=== PATIENT | female | born 1940 | race Caucasian/White ===

== ENCOUNTER 2024-11-09 17:21 | Emergency (ER) | payer MEDICARE ==
[~2024-11-09] VITALS: Ht 172.7 cm; Wt 87.6 kg
--- NOTE | 2024-11-09 17:38 | ELECTROCARDIOGRAPH REPORT ---
[facility] Test Date: 2024-11-09 Test Time: 17:35:42 Pat Name: YOLANDA NICHOLS Department: [facility]- Patient ID: [facility]-[id number] Room: Gender: F Manager Assembly: : 1940 Requested By: GINO VAN Order Number: [id number] Reading MD: Dr. Ayo Mccormack Measurements Intervals [place] Rate: 70 P: 0 CO: 0 QRS: -64 QRSD: 104 T: 81 QT: 428 QTc: 462 Interpretive Statements Afib/flutter and ventricular-paced rhythm No further analysis attempted due to paced rhythm Electronically Signed On 11-10-2024 6:40:[address] Ayo Mccormack Please click the below link to view image of tracing.
--- NOTE | 2024-11-09 18:02 | RADIOLOGY REPORT ---
CT CT STROKE ALERT INDICATION: Stroke Alert EXAM DATE: 11/09/2024 05:45 PM COMPARISON: None TECHNIQUE: CT of the head without intravenous contrast. RADIATION DOSE: CTDIvol: 56.69 mGy, DLP: 989.29 mGy*cm FINDINGS: There is no evidence of acute intracranial hemorrhage, extra-axial collection, mass effect, midline s hift, herniation or hydrocephalus. The ventricles, sulci and cisterns are age appropriate. The ramachandran -white differentiation is intact. The visualized paranasal sinuses and mastoid air cells are clear. The surrounding soft tissues and osseous structures are unremarkable. There is periventricular ischemic white matter changes and global atrophy. IMPRESSION: 1. No evidence of acute intracranial hemorrhage, mass effect or hydrocephalus. 2. Findings reported to the referral physician through freezer assistant
--- NOTE | 2024-11-09 18:07 | RADIOLOGY REPORT ---
EXAM: DI CHEST,SINGLE VIEW REASON FOR EXAM: Stroke Alert TECHNIQUE: 1 view of the chest COMPARISON: None FINDINGS/IMPRESSION: LUNGS: No pleural effusion, consolidation, or pneumothorax MEDIASTINUM: Normal cardiac size. Left anterior chest cardiac device. BONES: No acute osseous abnormality OTHER: None
[2024-11-09 18:27] LABS: BASOPHILS # (AUTO) 0.1 X10'3 (0-0.2); BASOPHILS % (AUTO) 0.7 % (0-1); EOSINOPHILS # (AUTO) 0.2 X10'3 (0-0.9); EOSINOPHILS % (AUTO) 2.5 % (0-6); HEMATOCRIT 40.3 % (35.0-45.0); HEMOGLOBIN 13.7 g/dl (12.0-16.0); LYMPHOCYTES # (AUTO) 1.7 X10'3 (1.1-4.8); LYMPHOCYTES % (AUTO) 24.1 % (21-51); MEAN CORPUSCULAR HEMOGLOBIN 31.2 PG (27.0-31.0); MEAN CORPUSCULAR VOLUME 91.8 FL (78-98); MEAN PLATELET VOLUME 9.2 FL (7.4-10.4); MONOCYTES # (AUTO) 0.4 X10'3 (0-0.9); MONOCYTES % (AUTO) 5.4 % (2-12); NEUTROPHILS # (AUTO) 4.6 X10'3 (1.8-7.7); NEUTROPHILS % (AUTO) 67.3 % (42-75); PLATELET COUNT 184 X10'3 (140-440); RED BLOOD COUNT 4.39 X10'6 (4.20-5.60); RED CELL DISTRIBUTION WIDTH 13.5 % (11.5-14.5); WHITE BLOOD COUNT 6.9 X10'3 (4.5-11.0)
[2024-11-09 18:29] LABS: APTT 32 SECONDS (22-32); INR 1.2 INR; PROTHROMBIN TIME 12.1 SECONDS (9.0-12.0)
[2024-11-09 18:32] VITALS: BP 189/76; PULSE 72; TEMP 97.5; O2SAT 96
[2024-11-09 18:33] LABS: ANION GAP 9 (8-16); BLOOD UREA NITROGEN 21 MG/DL (7-18); BUN/CREATININE RATIO 22.6 (10.0-20.0); CALCIUM 9.4 MG/DL (8.5-10.1); CHLORIDE 105 MMOL/L (99-107); CREATININE 0.93 MG/DL (0.40-0.90); GLUCOSE 114 MG/DL (70-104); POTASSIUM 3.4 MMOL/L (3.5-5.1); SODIUM 142 MMOL/L (135-145); TOTAL CARBON DIOXIDE 28.3 MMOL/L (24-32); eCRCL 45 ML/MIN; eGFR 57 ML/MIN
--- NOTE | 2024-11-09 20:26 | Physician Documentation ---
History of Present Illness ~ Chief Complaint: Stroke Alert Stated Complaint: HIGH BLOOD PRESSURE Time Seen by MD: 20:23 Mode of Arrival: POV HPI Patient presents to the emergency room with four days of right upper extremity pain. She endorses slight weakness however she is unsure if it is related to the pain or weakness itself. She denies any leg symptoms or facial symptoms. Ambulatory without issue. She denies any sort of traumas although she has been using this arm on a railing to help her walk up to her house recently. Pain is described as burning in nature not exacerbated with any movements or neck movements. Taking a leave and topical remedies with limited benefit. Denies chest pain Medication Reconciliation Allergies: Coded Allergies: tramadol (Unverified Adverse Reaction, Unknown, 11/09/24) Review of Systems ROS All review of systems negative except as per HPI Physical Exam Vital Signs: Temperature: 97.5, Source: Temporal, Heart Rate: 72, Respiratory Rate: 12, BP: 189/76, Pulse Oximetry: 96, Weight: 87.600 Oxygen Flow Rate: 0 General Appearance General: Patient is awake, alert, oriented x4 in no acute distress Head: Normocephalic and atraumatic. Eyes: Conjunctival normal. EOMI. PERRL. ENT: Mucous membranes moist. Neck: Supple, trachea is midline. Chest: Clear to auscultation bilaterally without rales, rhonchi, or wheezes. There is no accessory muscle use or retractions. Cardiac: RRR without murmurs, gallops, or rubs. Extremities: Left upper extremity normal, right upper extremity with tenderness to palpation to medial brachium. Strong radial pulses neurovascularly intact less than two 2nd capillary refill all movements of hand and wrist and elbow intact no exacerbation of pain with movement. Neuro: Cranial nerves 2-12 grossly intact, speech clear, flexion and extension of bilateral upper extremities equal. Steady gait Progress Results/Orders Results/Orders Orders - SANDEEP SHEPHERD MD Vl Venous (11/09/24 20:33) Completed Orders - SANDEEP SHEPHERD MD Ketorolac Trometh 15mg/Ml Vial (Toradol (11/09/24 20:55) Acetaminophen 325mg Tablet (Tylenol Tabl (11/09/24 20:55) Gabapentin Capsule (Neurontin Capsule) (11/09/24 20:55) Ondansetron Disint. Tablet (Zofran Odt T (11/09/24 23:15) Hydrocodone/Apap 5/325mg Tab ([place] 5/32 (11/09/24 23:15) Medications Received in ER Medications (Trade) Dose Ordered Sig/Sarah Route PRN Reason Start Time Stop Time Status Last Admin Dose Admin (Toradol injection) 20 mg ONCE ONCE IM 11/09/24 20:55 11/09/24 20:56 DC 11/09/24 21:12 20 MG (Tylenol tablet) 650 mg ONCE ONCE PO 11/09/24 20:55 11/09/24 20:56 DC 11/09/24 21:10 650 MG (Neurontin capsule) 300 mg ONCE ONCE PO 11/09/24 20:55 11/09/24 21:08 DC 11/09/24 21:10 300 MG (Zofran ODT tablet) 4 mg ONCE ONCE PO 11/09/24 23:15 11/09/24 23:16 DC 11/09/24 23:37 4 MG ([place] 5/325mg tablet) 1 tab ONCE ONCE PO 11/09/24 23:15 11/09/24 23:18 DC 11/09/24 23:38 1 TAB Vital Signs 11/09/24 11/09/24 11/09/24 11/09/24 17:26 18:32 20:19 21:12 Temp 98.4 97.5 Pulse 70 72 Resp 16 18 12 17 B/P (MAP) 172/68 189/76 (113) Pulse Ox 99 96 O2 Flow Rate 0 0 11/09/24 23:38 Resp 17 Laboratory Tests Test 11/09/24 17:40 White Blood Count 6.9 Red Blood Count 4.39 Hemoglobin 13.7 Hematocrit 40.3 Mean Corpuscular Volume 91.8 Mean Corpuscular Hemoglobin 31.2 H Mean Corpuscular Hemoglobin Concent 34.0 Red Cell Distribution Width 13.5 Platelet Count 184 Mean Platelet Volume 9.2 Neutrophils (%) (Auto) 67.3 Lymphocytes (%) (Auto) 24.1 Monocytes (%) (Auto) 5.4 Eosinophils (%) (Auto) 2.5 Basophils (%) (Auto) 0.7 Neutrophils # (Auto) 4.6 Lymphocytes # (Auto) 1.7 Monocytes # (Auto) 0.4 Eosinophils # (Auto) 0.2 Basophils # (Auto) 0.1 CBC Comment Prothrombin Time 12.1 H INR International Normalized Ratio 1.2 Activated Partial Thromboplast Time 32 Coagulation Comments Sodium Level 142 Potassium Level 3.4 L Chloride Level 105 Carbon Dioxide Level 28.3 Anion Gap 9 Blood Urea Nitrogen 21 H Creatinine 0.93 H Estimated GFR/1.73 m2 57 BUN/Creatinine Ratio 22.6 H Glucose Level 114 H Calcium Level 9.4 Troponin I High Sensitivity 13 Albumin 4.0 Chemistry Comments EKG/XRAY/CT/US/VASC/MRI EKG : Additional Comment EKG interpreted by myself shows time of 1735, rate 70, atrial flutter, left axis deviation, no ST changes, paced rhythm Chest X-Ray : Additional Comments Exam: CHEST,SINGLE VIEW EXAM: DI CHEST,SINGLE VIEW REASON FOR EXAM: Stroke Alert TECHNIQUE: 1 view of the chest COMPARISON: None FINDINGS/IMPRESSION: LUNGS: No pleural effusion, consolidation, or pneumothorax MEDIASTINUM: Normal cardiac size. Left anterior chest cardiac device. BONES: No acute osseous abnormality OTHER: None Medical Decision Making Findings Patient presented to the emergency room with right upper extremity pain as per HPI. Differentials include but are not limited to DVT, musculoskeletal pain, hematoma, referred pain, ACS, stroke therefore emergent labs and imaging indicated. There was some degree of confusion regarding pain versus weakness therefore CT scan was performed however neurologic exam is reassuring he had not feel patient has right upper extremity pain that has related to central nervous system pathology. Possible peripheral nerve given description of burning sensation. No rash no tenderness with light touch and he had not feel patient's pain is related to shingles. Pain improved. The need to follow up with her doctor discussed. Departure Disposition: HOME / SELF CARE / HOMELESS Impression: Primary Impression: Arm pain Condition: Stable Discharge Instructions: Cervical Radiculopathy, [id number] Additional Instructions: Ultrasound and labs were reassuring today. Take your relieve with Tylenol. Tylenol dosing is 1000 mg every 6 hours. I will prescribe you some [place] those if your relieve and Tylenol together are insufficient keeping in mind that there is 325 mg of Tylenol within the [place] Referrals: NO PRIMARY CARE PROVIDER (PCP) Prescriptions Ondansetron 8mg ODT (Ondansetron Odt) 8 Mg Tab.rapdis 1 TAB PO Q6H for nausea/vomiting for 3 Days, #12 TAB 0 Refills Prov: SANDEEP SHEPHERD MD 11/10/24 Hydrocodone Bit/Acetaminophen 5/325 MG ([place] 5/325 MG) 5 Mg/325 Mg Tablet 1 TAB PO Q4-6 hours PRN for pain, #15 TAB Prov: SANDEEP SHEPHERD MD 11/10/24 Education Educated: Patient, Family Educated regarding: diagnosis, treatment, need for follow up Signature Scribe Signature: No scribe Attestation: The note accurately reflects work and decisions made by me.Sandeep Shepherd MD 11/10/24 00:25 SANDEEP SHEPHERD MD November 09, 2024 20:26
[2024-11-09] MEDS: acetaminophen 325mg tablet PO ONE (21:10)
[2024-11-09] MEDS: gabapentin 300mg capsule PO ONE (21:10)
[2024-11-09] MEDS: ketorolac trometh 15mg/ml vial 15 MG/ML ML IM ONE (21:12)
[2024-11-09] MEDS: ondansetron 4mg rapidly disintigrating tab PO ONE (23:37)
[2024-11-09 23:38] VITALS: RESP 17
[2024-11-09] MEDS: HYDROcodone/acetaminophen 5mg/325mg tablet PO ONE (23:38)
[2024-11-10] MEDS ORDERED: HYDR-3965 PO (00:25)
[2024-11-10] MEDS ORDERED: ONDA-245 PO (00:25)
--- NOTE | 2024-11-10 00:36 | VASCULAR REPORT ---
Right Upper Extremity Venous Duplex Clinical History: Right arm pain Comparison: None Technique: Duplex Doppler evaluation of the venous system of right lower neck and upper extremity inc luding color Doppler and spectral/pulsed waveform analysis was performed. Findings: The internal jugular vein demonstrates appropriate compressibility and waveform variability . The subclavian vein is patent on color Doppler evaluation without intraluminal thrombus and demonstra les waveform variability . The visualized portion of the brachiocephalic vein is patent on color Doppler evaluation without intr aluminal thrombus and demonstrates waveform variability . The axillary vein demonstrates appropriate compressibility and waveform variability . The brachial veins demonstrate appropriate compressibility and patency on Doppler evaluation. The basilic vein demonstrates appropriate compressibility and patency on Doppler evaluation. The cephalic vein demonstrates appropriate compressibility and patency on Doppler evaluation. Impression: No venous thrombus identified in right upper extremity vessels evaluated above.
== END 2024-11-10 00:56 | disposition home or self-care (01) ==
LOC: ER 17:22
DX: M79.601 Pain in right arm (principal); Z88.5 Allergy status to narcotic agent; R20.8 Other disturbances of skin sensation
CPT/HCPCS: 36415; 70450; 71045; 80048; 84484; 85025; 85610; 85730; 93005; 93971; 96372; 99285; J1885